=== PATIENT | male | born 1935 | race Caucasian/White ===

== ENCOUNTER 2016-10-21 13:36 | Emergency (ER) | payer MEDICARE ==
[~2016-10-21] VITALS: Ht 175.3 cm; Wt 90.9 kg
[~2016-10-21 13:36] MED LIST: ASPI81TA2 PO; ATOR80TA77 PO; CA C1TAB28 PO; CLOP75TA28 PO; LEVO50TA6 PO; LISI10TA2 PO; MULT-1018 PO; OMEG1CAP56 PO; PANT40TA2 PO
[2016-10-21 13:45] VITALS: BP 154/80; PULSE 66; RESP 15; O2SAT 100
[2016-10-21 14:05] VITALS: BP 155/82; PULSE 53; RESP 14; O2SAT 99
[2016-10-21 14:15] LABS: BASOPHILS % (AUTO) 0.3 % (0-3); MONOCYTES % (AUTO) 7.1 % (4-12); Mean Corpuscular Hemoglobin 34.2 pg (27.0-35.0); Platelet Count 198 bil/L (150-400)
--- NOTE | 2016-10-21 14:21 | DRSVH ---
PROCEDURE: CT BRAIN WITHOUT CONTRAST ([id number]) INDICATIONS: momentary confusion TECHNIQUE: Noncontrast 4.5 mm thick angled axial sections acquired from the foramen magnum to the vertex, with c oronal reformats. COMPARISON: [facility], CT, CT BRAIN WO CON, 07/12/2015, 10:48. FINDINGS: Image quality: Diagnostic. Brain: There is no acute intra-axial or extra-axial hemorrhage. No extra-axial fluid collection is i dentified. There is no midline shift or mass effect. The orbits are grossly unremarkable. No large areas of diffusely decreased attenuation are evident within the brain to suggest diffuse cer ebral edema. There may be scattered areas of low-attenuation within the periventricular and deep whi te matter of the supratentorial brain. The ventricles and cortical sulci are mildly prominent Bones: Calvarium and visualized facial bones are grossly intact. The imaged paranasal sinuses and m astoid air cells are clear. IMPRESSION: Stable head CT. No acute intracranial hemorrhage. Dictated by: Praneeth So M.D. on 10/21/2016 at 13:17 Approved by: Praneeth So M.D. on 10/21/2016 at 13:19
[2016-10-21 15:51] LABS: APPEARANCE,URINE CLEAR (CLEAR,HAZY); COLOR,URINE YELLOW (YELLOW); OCCULT BLOOD,URINE NEGATIVE (NEGATIVE); PH,URINE 7.5 (5.0-8.0); UROBILINOGEN,URINE NORMAL (NORMAL)
--- NOTE | 2016-10-21 16:07 | ED.REPORT ---
HPI-Stroke / CVA Oct 21, 2016 ED Provider: Boyd Jones MD Pt is an 81 y/o male w/ a hx of HTN, TIA, hyperlipidemia, CAD, presenting to the ED c/o vague neurological symptoms which are now resolved onset 13:00 today. [place] and began to experience what he says was a panic attack and was unsure if he was having a stroke so he decided to be evaluated. He reports symptoms lasting about 1 minute of lightheadedness and vague confusion. After telling his story multiple times he now believes this was a panic attack. Pt denies any numbness, tingling, weakness, vision or speech changes, SOB, CP. He has a history of TIA in the past with vague non- focal symptoms that he cannot describe. He has been seen previously with a similar episode which resulted in a negative workup. Nursing Notes Stated Complaint: POSS STROKE Chief Complaint: Neuro Symptoms/ Deficits Nursing Notes Reviewed: Yes Allergies: Coded Allergies: LADI Inhibitors (Verified Adverse Reaction, Unknown, cough, 10/13/13) Scheduled Aspirin-Expunged Drug, Do Not Renew! (Aspirin-Expunged Drug, Do Not Renew!) 81 Mg Tab 81 MG PO AM (Reported) Atorvastatin Calcium (Atorvastatin Calcium) 80 Mg Tablet 80 MG PO DAILY ( Reported) Ca Cmb No.1/Vit D3/B-6/FA/B12 (Vitamin D3 1,000 Unit Tablet) 1 Each Tablet 1 EACH PO DAILY Clopidogrel (Clopidogrel) 75 Mg Tablet 75 MG PO DAILY Levothyroxine (Levothyroxine) 50 Mcg Tablet 50 MCG PO DAILY (Reported) Lisinopril (Lisinopril) 10 Mg Tablet 10 MG PO DAILY (Reported) Multivitamin (Multi Vitamin Daily) 1 Each Tablet 1 EACH PO DAILY Hollins-3 Fatty Acids/Fish Oil (Hollins 3 1,000 mg Softgel) 1 Each Capsule 1 EACH PO DAILY Pantoprazole DR (Protonix) 40 Mg Tablet 40 MG PO DAILYAC General Time Seen by Provider: 16:08 Chief Complaint Other (vague) Hx Obtained From: Patient Arrived By: Walk-in Time last known well 1300 Sudden in Onset?: Yes Symptom Duration: 1 - 15 minutes Progression Since Onset: Resolved Severity: Current: No pain currently Severity: Maximum: No pain Recent Healthcare: Previous diagnosis Similar Sx Previous: Yes Risk Factors )( TPA Administration/Criteria Stroke Thrombolytic Therapy : TPA Considered: No TPA Administered Intravenously: No, not indicated NIH Stroke Scale Level of Consciousness: Alert and responsive (0) Ask Month & Age: Both questions right (0) Open/Close Eyes/Hand Academic Interventionist: Performs both tasks (0) Horizontal EO Movements: None (0) Visual Mcghee: No visual loss (0) Facial Palsy: Normal symmetry (0) Right Arm Motor Drift (10s): No drift 10 sec (0) Left Arm Motor Drift (10s): No drift 10 sec (0) Right Leg Motor Drift (5s): No drift 5 sec (0) Left Leg Motor Drift (5s): No drift 5 sec (0) Limb Ataxia FNF/Heel-Shaikh: No ataxia (0) Sensation (Arms/Legs/Face): No sensory loss (0) Language Aphasia: No aphasia, normal (0) Dysarthria: No dysarthria, normal (0) Extinction/Inattention: No exctinct/inattent (0) NIHSS Score: 0 Time NIHSS Performed: 16:16 Date NIHSS Performed: Oct 21, 2016 Past Medical History Past Medical History Notes: 01/02/ brief dizziness and confusion. symptoms resolved. nl workup 09/15 TIA Past Medical History Hep C BPH broke ribs Asbestos exposure Reports: Coronary artery disease, Hyperlipidemia, Hypertension, Transient ischemic attack Past Surgical History Two stents placed in december in [place] Thoracentesis Reports: Angioplasty Family History Reviewed, not relevant Smoking History Former Smoker Social History Alcohol Use: In recovery Drug Use: Denies drug use Ambulatory Status Independent Review of Systems Constitutional: Denies: Chills, Fever Respiratory: Denies: Non-productive cough, Shortness of breath Cardiovascular: Denies: Chest pain, Dyspnea on exertion GI: Denies: Abdominal pain, Nausea, Vomiting Neurologic: Reports: Confusion, Dizziness, Lightheaded, Denies: Change LOC, Numbness, Seizure, Slurred speech, Unable to speak, Vision change Complete sys rev & neg: except as marked. Physical Exam Initial Vital Signs Vital Signs (First) Date Time Temp Pulse Resp B/P Pulse Ox O2 Delivery O2 Flow Rate FiO2 10/21/16 13:45 36.3 66 15 154/80 100 Room Air Initial VS: Reviewed, Vital signs normal ENT: Mucous membranes moist, Conjunctiva normal, No scleral icterus Abdomen / GI: Soft, Non-tender, No distention Extremities: Vascular intact, Neuro intact, No swelling, No tenderness Skin: Warm, Dry, No cyanosis Psychiatric: Mood/affect normal, Behavior normal, Normal thought content General/Constitutional: Awake, Alert, No acute distress, Well appearing, Cooperative, Not toxic appearing Head / Eyes: Atraumatic, Normocephalic, PERRL Neck: Atraumatic, Supple, No meningismus, Full range of motion Respiratory / Chest: Breath sounds NL, Breath sounds = bilat, No respiratory distress, No rales, No rhonchi, No wheezing Cardiovascular: Heart rate NL, Regular rhythm, Heart sounds NL, No gallop, No murmurs, No rubs, Cap refill not delayed, Peripheral circulation NL Neurologic: Oriented X3, Speech NL, No motor deficits, No sensory deficits, CN II - XII intact, Cerebellar NL, Memory NL NIH stroke scale = 0 Interpretation & Diagnostics Lab Results Interpretation Result Diagram: 10/21/16 1400 10/21/16 1400 Test 10/21/16 14:00 10/21/16 15:36 White Blood Count 6.0th/mm3 (3.8-10.1) Red Blood Count 4.36mil/mm3 (4.40-5.80) Hemoglobin 14.9g/dL (13.8-17.2) Hematocrit 41.4% (41.0-50.0) Mean Corpuscular Volume 95.0fL (81-100) Mean Corpuscular Hemoglobin 34.2pg (27.0-35.0) Mean Corpuscular Hemoglobin Concent 36.0% (32.0-37.0) Red Cell Distribution Width 11.6% (12.3-15.4) Platelet Count 198bil/L (150-400) Neutrophils (%) (Auto) 57.0% (40-74) Lymphocytes (%) (Auto) 33.4% (14-46) Monocytes (%) (Auto) 7.1% (4-12) Eosinophils (%) (Auto) 2.0% (0-5) Basophils (%) (Auto) 0.3% (0-3) Sodium Level 132mEq/L (134-144) Potassium Level 4.4mEq/L (3.5-5.2) Chloride Level 99mEq/L (97-108) Carbon Dioxide Level 21mmol/L (18-29) Blood Urea Nitrogen 16mg/dL (8-27) Creatinine 1.06mg/dL (0.76-1.27) Estimat Glomerular Filtration Rate 71mL/min (>59) Glucose Level 112mg/dL (60-99) Calcium Level 8.8mg/dL (8.5-10.1) Total Bilirubin 1.1mg/dL (0.0-1.2) Aspartate Amino Transf (AST/SGOT) 23U/L (0-50) Alanine Aminotransferase (ALT/SGPT) 21U/L (0-44) Alkaline Phosphatase 55U/L (25-160) Total Protein 7.4g/dL (6.4-8.4) Albumin 3.8g/dL (3.4-5.0) Hold Coffey Top Tube Received (Received) Urine Color Yellow (YELLOW) Urine Appearance Clear (CLEAR,HAZY) Urine pH 7.5 (5.0-8.0) Urine Specific [place] 1.010 (1.003-1.035) Urine Protein 30mg/dL (NEG,TRACE) Urine Glucose (UA) Negativemg/dL (NEGATIVE) Urine Ketones Negativemg/dL (NEGATIVE) Urine Occult Blood Negative (NEGATIVE) Urine Nitrite Negative (NEGATIVE) Urine Bilirubin Negative (NEGATIVE) Urine Urobilinogen Normalmg/dL (NORMAL) Urine Leukocyte Esterase Negative (NEGATIVE) Urine RBC 0-2/hpf (0-2) Urine WBC 0-5/hpf (0-5) Urine Epithelial Cells Occasional/hpf (NONE-MOD) Urine Crystals None seen (NONE SEEN) Urine Bacteria Few/hpf (NONE-FEW) Urine Hyaline Casts None/lpf (NONE) Urine Granular Casts None seen (NONE SEEN) Urine Waxy Casts None seen (NONE SEEN) Urine Red Blood Cell Casts None seen (NONE SEEN) Urine White Blood Cell Casts None seen (NONE SEEN) Urine Mucus None seen (None Seen) Urine Trichomonas None seen (NONE SEEN) Urine Yeast None (NONE SEEN) Urinalysis Comment None Urine Culture Reflexed Not indicated ECG Interpretation ECG Interpretation: Sinus rhythm rate 60 RBBB Unchanged from old Time: 16:08 Interpreted by: ED physician Normal ECG Interpretation: Normal rate, Normal sinus rhythm, No acute ischemic changes CT Head Interpretation IMPRESSION: Stable head CT. No acute intracranial hemorrhage. Dictated by: Praneeth So M.D. on 10/21/2016 at 13:17 Approved by: Praneeth So M.D. on 10/21/2016 at 13:19 Study: Head CT no contrast Interpretation / Wet Read by: Interpret - Radiologist Re-Eval/Medical Decision Med Decision/Clinical Course 81-year-old male history of TIAs and panic attacks presenting while he was at the [facility] he had an episode of confusion that lasted approximately 1 minute. He reports he was very excited due to losing money. He believes he may have had a panic attack. He reports this is similar to his previous panic attacks. He does have a history of TIAs which were different. He had no other neurological deficits. Symptoms resolved after 1 minute. His NIH stroke scale here is 0. He has no neurological deficits. His labs are unremarkable. CT brain is normal. I discussed with patient that this likely a panic attack cannot rule out TIA and he requests to go home and not be admitted. Discharged home with return precautions if any new or worsening symptoms or any neurological deficits. He will continue his daily aspirin. Re-Evaluation/Progress : Time of Eval: 16:18 Re-Evaluation/Progress Note: Pt rechecked. Informed pt of plan for treatment. Pt understands and agrees with plan for treatment. F/U instructions and RTER warnings given. All questions addressed. Counseled Regarding: Diagnosis, Lab results, Need for follow-up, When/why to return to ED Patient Discharge & Departure Impression: Primary Impression: Panic attack Additional Impression: Altered mental status Altered mental status type: unspecified Qualified Code: R41.82 - Altered mental status, unspecified Disposition: Home Discharge Condition All VS Reviewed: Yes Condition: Stable Patient Instructions: Panic Attack (ED) Additional Instructions: I believe your symptoms were caused by a panic attack today, although a min- stroke cannot be completely ruled out. You have decided to go home today. Continue taking your aspirin. Head CT, labs, and neurological exam today were all normal. Return to the emergency department if you experience confusion, numbness, tingling, weakness of your arms or legs, severe headache, speech or vision changes, or for other concerning symptoms. Follow-up with your primary care provider by the end of the week for a recheck. Referrals: Felipe Vieira MD (PCP) Scribe Attestation Portions of this note were transcribed by Jacob Farah. I, Dr. Jones, personally performed the history, physical exam and medical decision-making; I reviewed and confirmed the accuracy of the information in the transcribed note. Signed by Alexandre Littlejohn, 10/21/16 - [id number] copies to: Felipe Vieira MD, Ben M MD Oct 21, 2016 16:07 JACOB FARAH Oct 21, 2016 16:14
[2016-10-21 16:49] VITALS: BP 158/93; PULSE 66; RESP 16; O2SAT 97
== END 2016-10-21 16:20 | disposition home or self-care (01) ==
LOC: SED 13:36
DX: F41.0 Panic disorder [episodic paroxysmal anxiety] (principal); R41.82 Altered mental status, unspecified; I11.9 Hypertensive heart disease without heart failure; I25.10 Atherosclerotic heart disease of native coronary artery without angina pectoris; E78.5 Hyperlipidemia, unspecified; Z87.891 Personal history of nicotine dependence; Z91.048 Other nonmedicinal substance allergy status; Z86.73 Personal history of transient ischemic attack (TIA), and cerebral infarction without residual deficits